=== PATIENT | male | born 1945 | race Caucasian/White ===

== ENCOUNTER 2018-07-17 16:00 | Outpatient (CLI) | payer MEDICARE | END 2018-07-17 16:01 | disposition critical access hospital (66) | LOC: EMS 16:00 | PROVIDERS: ATTEND Surgery | DX: R07.89 Other chest pain (principal); V59.40XA Driver of pick-up truck or van injured in collision with unspecified motor vehicles in traffic accident, initial encounter; Y92.414 Local residential or business street as the place of occurrence of the external cause; Z79.01 Long term (current) use of anticoagulants | CPT/HCPCS: A0425; A0429 ==

== ENCOUNTER 2018-07-17 16:15 | Emergency (ER) | payer OTHER, MEDICARE ==
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
[2018-07-17 16:43] VITALS: BP 140/73
== END 2018-07-17 16:57 | disposition home or self-care (01) ==
LOC: ED 16:15
DX: Z04.1 Encounter for examination and observation following transport accident (principal)
CPT/HCPCS: 99282; 99283